=== PATIENT | male | born 2000 | race Two or more races ===

== ENCOUNTER 2019-12-20 11:21 | Emergency (ER) | payer SELFPAY ==
[~2019-12-20] VITALS: Ht 170.2 cm; Wt 56.7 kg
[2019-12-20 11:30] VITALS: BP 137/90
[2019-12-20] MEDS ORDERED: NEOMYCIN-BACITRACIN-POLYM UNITDOSE PKG TOP OINT TOP ONE (12:15)
[2019-12-20] MEDS ORDERED: ACETAMINOPHEN 500 MG TAB PO ONE (12:30)
[2019-12-20] MEDS ORDERED: TETANUS-DIPTH-ACEL PERTUSSIS 0.5ML SYR Tdap IM ONE (12:30)
[2019-12-20] MEDS ORDERED: BACITRACIN TOP OINT 1 UD PKG TOP ONE (12:30)
== END 2019-12-20 12:50 | disposition home or self-care (01) ==
LOC: ER 11:21
DX: S61.001A Unspecified open wound of right thumb without damage to nail, initial encounter (principal); W26.9XXA Contact with unspecified sharp object(s), initial encounter; Y93.89 Activity, other specified; Y92.89 Other specified places as the place of occurrence of the external cause; Y99.8 Other external cause status
CPT/HCPCS: 90471; 90715